=== PATIENT | female | born 1965 | race African-American/Black ===

== ENCOUNTER 2025-01-24 16:23 | Emergency (ER) | payer MEDICARE, OTHER ==
[~2025-01-24] VITALS: Ht 172.7 cm; Wt 81.6 kg
[2025-01-24] MEDS ORDERED: KETOROLAC TROMETHAMINE INJ 30 MG/ML VIAL ONE (17:06)
[2025-01-24] MEDS ORDERED: HYDROCHLOROTHIAZIDE 25 MG TABLET ONE (17:06)
[2025-01-24] MEDS: KETOROLAC TROMETHAMINE INJ 30 MG/ML VIAL IM ONE (17:31)
[2025-01-24] MEDS: HYDROCHLOROTHIAZIDE 25 MG TABLET PO ONE (17:32)
[2025-01-24] MEDS ORDERED: LISINOPRIL (20MG) 20 MG TABLET ONE (17:44)
[2025-01-24] MEDS: LISINOPRIL (20MG) 20 MG TABLET PO SCH (17:45)
[2025-01-24] MEDS ORDERED: HYDR-4303 PO (18:52)
[2025-01-24] MEDS ORDERED: HYDROCODONE/APAP 5/325MG TABLET ONE (19:18)
[2025-01-24] MEDS: HYDROCODONE/APAP 5/325MG TABLET PO ONE (19:20)
[2025-01-24 19:49] VITALS: BP 180/85; TEMP 208.4; O2SAT 99
== END 2025-01-24 19:50 | disposition home or self-care (01) ==
LOC: ER 16:38
DX: M54.2 Cervicalgia (principal); M54.6 Pain in thoracic spine; H54.8 Legal blindness, as defined in USA; I10 Essential (primary) hypertension; Z79.899 Other long term (current) drug therapy
CPT/HCPCS: 99285; 96372; 72040; 72070; J1885